=== PATIENT | female | born 1950 | race Caucasian/White ===

== ENCOUNTER 2025-05-22 12:05 | Emergency (ER) | payer OTHER, SELFPAY ==
[2025-05-22 12:07] VITALS: BP 122/59
--- NOTE | 2025-05-22 12:58 | ED.GENMED ---
History of Present Illness
General
Chief Complaint: Musculo-Skeletal Complaint
Source: patient
Exam Limitations: none
Time Seen by Provider: 05/22/25 12:46
History of Present Illness
History of Present Illness:
74yoF with no significant past medical history presenting for evaluation of left ankle pain. Patient was walking outside about a week ago when she stepped into a hole and rolled her ankle. She has been having pain in her left lateral ankle since
then. She is able to bear weight. Pain is present mostly on inversion and eversion. She denies any paresthesias. She does have a prior history of a left ankle fracture as a child.
Phy Exam
General Physical Exam
General Presentation: well appearing and no apparent distress
General Skin: warm and dry
General Habitus: normal
General Mental: alert
ENT Exam
ENT Exam: normocephalic
Pulmonary Exam
Pulmonary Exam: no respiratory distress
Neurological Exam
Neurological Exam: alert
Chanell Coma Scale
Eye Opening: Spontaneous
Verbal Response: Oriented
Motor Response: Obeys Commands
GCS Total Score: 15
Musculoskeletal Exam
Musculoskeletal Exam: other (L ankle: Moderate soft tissue swelling. No deformity. +Tenderness to the lateral malleolus. ROM mildly decreased. 2+ DP pulse and sensation intact.)
Skin Exam
Skin Exam: normal color and warm/dry
Psychiatric Exam
Psychiatric Exam: normal mood/affect
Course
Orders/Labs/Results
Orders:
Orders
05/22/25 12:07
Ankle, left 3 view CR [CR Ankle - Left Min 3 Views ] Urgent
Comment:
Reason For Exam: pain
05/22/25 12:57
boot [Ortho Boot Left- Treatment] ONCE
Short or tall?: Short
Vital Signs
Initial and Last Documented VS:
Initial Vital Signs
Temp Pulse Resp BP Pulse Ox
98.2 F 78 18 122/59 95
05/22/25 12:07 05/22/25 12:07 05/22/25 12:07 05/22/25 12:07 05/22/25 12:07
Last Documented Vital Signs
Temp Pulse Resp BP Pulse Ox
98.2 F 78 18 122/59 95
05/22/25 12:07 05/22/25 12:07 05/22/25 12:07 05/22/25 12:07 05/22/25 12:59
MDM/Problems Addressed
Differential Diagnosis Includes:
74yoF here with ongoing L ankle pain and swelling after an injury about a week ago. Moderate soft tissue swelling noted without deformity. LLE is neurovascularly intact. Differential diagnosis includes: fracture vs. sprain
X-rays obtained which reveal: 'Slight osseous irregularity at the inferior margin of the distal fibula suggesting the sequela of an age-indeterminate avulsion, more likely to be chronic but clinical correlation is recommended.' Patient does have
tenderness directly at the lateral malleolus. She was placed in a walking boot. Advised f/u with orthopedics.
*Pulse Oximetry
SaO2: 95
Oxygen Mode of Delivery: Room air
Patient hypoxic: no (95%)
*Critical Care Note
Total Time (30-74mins, 75-104mins- exclusive of procedures): Not Applicable
ED Attending Note
-
Portions of this chart may have been created with voice recognition software.� Occasional wrong word or��sound alike� substitutions may have occurred due to the inherent limitations of voice recognition software.
Discharge Plan
Departure
Patient Disposition: Home (Routine Discharge)
Date of Disposition: 05/22/25
Time of Disposition: 12:59
Patient with high blood pressure during this ER visit?: No
Discharge Problem:
Injury of left ankle
Instructions: Ankle Fracture (DC)
Referrals:
Tylor Mckeon MD [Active, Orthopedics]
Activity Restrictions/Additional Instructions:
Ice your ankle to help with swelling. Wear boot for immobilization. You may take Tylenol and ibuprofen for pain.
Please follow-up with orthopedics.
Interventions
Interventions:
*Risk Screen - Suicide Last Done: 05/22/25 12:07
*General Assessment Last Done: 05/22/25 12:11
*Nursing Disposition Last Done: 05/22/25 13:28
ED-Musculoskeletal Assessment Last Done: 05/22/25 12:20
Discharge Date and Time
Discharge Date/Time: 05/22/25 13:29
Print Language: MONGOLIAN
== END 2025-05-22 13:29 | disposition home or self-care (01) ==
LOC: EMR 12:05
PROVIDERS: EMERGENCY PHYSICIAN Emergency Medicine; FAMILY PHYSICIAN Family Medicine
DX: S99.912A Unspecified injury of left ankle, initial encounter (principal); M25.472 Effusion, left ankle; X50.1XXA Overexertion from prolonged static or awkward postures, initial encounter; W17.2XXA Fall into hole, initial encounter; Y93.01 Activity, walking, marching and hiking; Z88.8 Allergy status to other drugs, medicaments and biological substances
CPT/HCPCS: 99283; 29515; 73610

== ENCOUNTER 2025-07-02 06:15 | Day surgery (SDC) | payer OTHER, SELFPAY | END 2025-07-02 09:58 | disposition home or self-care (01) | LOC: GI 06:15 | PROVIDERS: ATTENDING PHYSICIAN Surgery; FAMILY PHYSICIAN Family Medicine | DX: Z12.11 Encounter for screening for malignant neoplasm of colon (principal); R19.5 Other fecal abnormalities; D12.2 Benign neoplasm of ascending colon; D12.3 Benign neoplasm of transverse colon; K63.5 Polyp of colon; K51.40 Inflammatory polyps of colon without complications | CPT/HCPCS: 45385; 45380; 88305 ==